=== PATIENT | male | born 1985 | race African-American/Black ===

== ENCOUNTER 2020-10-07 08:24 | Emergency (ER) | payer OTHER ==
--- NOTE | 2020-10-07 09:03 | EDM.PDOC ---
ED HPI GENERAL MEDICAL PROBLEM - General Chief Complaint: Lower Extremity Injury/Pain Stated Complaint: RIGHT BIG TOE PAIN [id number] Time Seen by Provider: 10/07/20 08:59 Source of Information: Reports: Patient, RN, RN Notes Reviewed History Limitations: Reports: No Limitations - History of Present Illness INITIAL COMMENTS - FREE TEXT/NARRATIVE: Helen is a 35 y/o male who presents to the ED via personal vehicle with complaints of pain to his right great toe. The patient reports he was squatting on his toes for an extended period of time three days ago and heard a "...pop" from his right great toe. Initially he did not note pain to this toe, but woke the next day with a sharp pain to his MTP joint with ambulation. He denies a history of injury to this extremity. The patient reports he was given ibuprofen from a [employer] medic that he has taken x1; he notes mild alleviation of pain with the medication. He denies loss of motor or sensory function to the affected extremity. Right Toe-Hailux Pain Score (Numeric/FACES): 0 - Related Data Allergies Allergy/AdvReac Type Severity Reaction Status Date / Time No Known Allergies Allergy Verified 10/07/20 08:37 Home Meds: Home Meds . [No Known Home Meds] 10/07/20 [History] Past Medical History HEENT History: Reports: None Cardiovascular History: Reports: None Respiratory History: Reports: None Gastrointestinal History: Reports: None Genitourinary History: Reports: None Musculoskeletal History: Reports: None Neurological History: Reports: None Psychiatric History: Reports: None Endocrine/Metabolic History: Reports: None Hematologic History: Reports: None Immunologic History: Reports: None Oncologic (Cancer) History: Reports: None Dermatologic History: Reports: None - Infectious Disease History Infectious Disease History: Reports: Chicken Pox - Past Surgical History Head Surgeries/Procedures: Reports: None Social & Family History - Tobacco Use Tobacco Use Status *Q: Never Tobacco User Second Hand Smoke Exposure: No - Caffeine Use Caffeine Use: Reports: Coffee - Recreational Drug Use Recreational Drug Use: No Review of Systems - Review of Systems Review Of Systems: Comprehensive ROS is negative, except as noted in HPI. ED EXAM, GENERAL - Physical Exam Exam: See Below Exam Limited By: No Limitations General Appearance: Alert, No Apparent Distress Throat/Mouth: Normal Inspection, Normal Voice, No Airway Compromise Respiratory/Chest: No Respiratory Distress, Lungs Clear, Normal Breath Sounds, No Accessory Muscle Use, Chest Non-Tender Cardiovascular: Normal Peripheral Pulses, Regular Rate, Rhythm, No Edema, No Gallop, No JVD, No Murmur, No Rub Peripheral Pulses: 2+: Radial (L), Radial (R), Posterior Tibial (R), Dorsalis Pedis (R) Extremities: Normal Range of Motion, No Pedal Edema, Normal Capillary Refill, Leg Pain (To MTP joint of right great toe). No: Joint Swelling, Increased Warmth, Mottled, Pallor, Redness Neurological: Alert, Oriented, CN II-XII Intact, Normal Cognition, Normal Gait, Normal Reflexes, No Motor/Sensory Deficits Psychiatric: Normal Affect, Normal Mood Skin Exam: Warm, Dry, Intact, Normal Color, No Rash. No: Ecchymosis, Erythema, Mottled, Pallor, Petechiae Course - Vital Signs Last Recorded V/S: Last Vital Signs Temp 97.6 F 10/07/20 08:34 Pulse 71 10/07/20 09:49 Resp 20 10/07/20 09:49 BP 120/78 10/07/20 09:49 Pulse Ox 100 10/07/20 09:49 - Radiology Interpretation Free Text/Narrative:: [facility] Final Radiology Report Call: [phone] assistance Online chat: [email or web address] Name: HELEN BOOGIE Age: 35Years M Date: 10/07/2020 SSN: -- : [id number] Study: CR FOOT COMP MIN 3V RT Requesting Physician: Radha Hendricks Images: 3 Addl Studies: Provided Clinical History: Pain to right great toe with ambulation x3 days Contrast: Contrast Medium: Contrast Amount: Contrast Method: CONFIDENTIALITY STATEMENT This report is intended only for use by the referring physician, and only in accordance with law. If you received this in error, call [phone]. Page 1 of 1 PROCEDURE INFORMATION: Exam: XR Right Foot Exam date and time: 10/07/2020 9:05 AM Age: 35 years old Clinical indication: Pain; Toes; Right; Additional info: Pain to right great toe with ambulation x3 days TECHNIQUE: Imaging protocol: XR Right foot. Views: 3 or more views. COMPARISON: No relevant prior studies available. FINDINGS: Bones/joints: Normal. Soft tissues: Normal. IMPRESSION: No acute findings. Thank you for allowing us to participate in the care of your patient. Dictated and Authenticated by: Rosy Lundberg MD 10/07/2020 9:33 AM Central Time ([place] & [place]) - Re-Assessments/Exams Free Text/Narrative Re-Assessment/Exam: 10/07/20 Xray of right great toe unremarkable for acute findings; no evidence of fracture or dislocation. Findings of examination and imaging reviewed with patient. Discussed supportive cares for right great toe pain as well as red flag signs and symptoms which would warrant reevaluation. Patient verbalized understanding and agreement with the plan of care. Departure - Departure Time of Disposition: 09:41 Disposition: Home, Self-Care 01 Condition: Good Clinical Impression: Pain of right great toe - Discharge Information *PRESCRIPTION DRUG MONITORING PROGRAM REVIEWED*: Not Applicable *COPY OF PRESCRIPTION DRUG MONITORING REPORT IN PATIENT GENET: Not Applicable Instructions: Foot Pain Forms: ED Department Discharge Additional Instructions: 1.) You may take ibuprofen (Advil/Motrin) 400mg every six hours, as pain persists. You may also take acetaminophen (Tylenol) 650mg every six hours, as pain persists. You may stagger these medications so you are receiving a dose every three hours. 2.) You may apply ice to the affected area, as pain persists; 20 minutes on every hour. 3.) Wear supportive shoes that allow for movement within the toebox. Sepsis Event Note (ED) - Evaluation Sepsis Screening Result: No Definite Risk - Focused Exam Vital Signs: Vital Signs Temp Pulse Resp BP Pulse Ox 10/07/20 09:49 71 20 120/78 100 10/07/20 08:34 97.6 F 96 18 151/88 H 100
--- NOTE | 2020-10-07 09:33 | CR ---
PROCEDURE INFORMATION: Exam: XR Right Foot Exam date and time: 10/07/2020 9:05 AM Age: 35 years old Clinical indication: Pain; Toes; Right; Additional info: Pain to right great toe with ambulation x3 days TECHNIQUE: Imaging protocol: XR Right foot. Views: 3 or more views. COMPARISON: No relevant prior studies available. FINDINGS: Bones/joints: Normal. Soft tissues: Normal. IMPRESSION: No acute findings.
== END 2020-10-07 09:56 | disposition home or self-care (01) ==
LOC: DL.ED 08:24
DX: M79.674 Pain in right toe(s) (principal)
CPT/HCPCS: 73630-RT; 99282; 99283